=== PATIENT | female | born 1975 | race Caucasian/White ===

== ENCOUNTER 2018-11-14 14:13 | Emergency (ER) | payer MEDICAID ==
[~2018-11-14] VITALS: Ht 160 cm; Wt 72.7 kg
[2018-11-14 14:23] VITALS: BP 128/91
[2018-11-14] MEDS ORDERED: ketorolac trometh inj. 60 MG/2 ML VIAL IM ONE (14:50)
== END 2018-11-14 15:15 | disposition home or self-care (01) ==
LOC: ER 14:14
DX: M75.82 Other shoulder lesions, left shoulder (principal); J45.909 Unspecified asthma, uncomplicated; Z87.891 Personal history of nicotine dependence; Z88.8 Allergy status to other drugs, medicaments and biological substances
CPT/HCPCS: 73030; 96372; 99283; J1885